=== PATIENT | female | born 1985 | race Caucasian/White ===

== ENCOUNTER 2020-12-26 17:01 | Emergency (ER) | payer OTHER, MEDICAID ==
[~2020-12-26] VITALS: Ht 180.3 cm; Wt 63.5 kg
--- NOTE | 2020-12-26 17:03 | NUR ---
BIBA BLS TO ER BED 5
[2020-12-26 17:09] VITALS: BP 107/68
--- NOTE | 2020-12-26 17:18 | NUR ---
35YO F BIBA PRESENTING WITH ALOC X 1 HR. PT WAS FOUND IN [employer] SIT[place] ON [place] WITH HER BOYFRIEND. 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 [facility] REPORTS SLURRING OF SPEECH. PT ADMITS TO TAKING 2 PILLS OF XANAX. BS- 107. PT IS A POOR HISTORIAN AND UNABLE TO PROVIDE A DETAILED MEDICAL HX. PMH: HLD, ANEMIA, MD. (COULD BE INACCURATE, SEE ABOVE) MEDS: VICODINE, XANAX ALLERGY: PENICILLIN
--- NOTE | 2020-12-26 18:03 | NUR ---
RADHA GARRISON AT BEDSIDE FOR EKG
[2020-12-26 18:05] LABS: BASOPHILS # (AUTO) 0.1 K/uL (0.00-0.22); BASOPHILS % (AUTO) 1.2 % (0.0-2.0); EOSINOPHILS # (AUTO) 0.1 K/uL (0-0.4); EOSINOPHILS % (AUTO) 2.9 % (0.0-4.0); HEMATOCRIT 41.7 % (36-48); HEMOGLOBIN 14.5 g/dL (12.0-16.0); LYMPHOCYTES # (AUTO) 1.7 K/uL (2.5-16.5); LYMPHOCYTES % (AUTO) 35.2 % (20.5-51.1); MEAN CORPUSCULAR HEMOGLOBIN 34 pg (27-31); MEAN CORPUSCULAR HGB CONC 35 g/dL (33-37); MONOCYTES # (AUTO) 0.3 K/uL (0.8-1.0); MONOCYTES % (AUTO) 6.4 % (1.7-9.3); NEUTROPHILS # (AUTO) 2.6 K/uL (1.8-7.7); NEUTROPHILS % (AUTO) 54.3 % (42.2-75.2); PLATELET COUNT (AUTO) 254 K/uL (140-450); RED BLOOD CELL COUNT(AUTO) 4.25 MIL/uL (4.20-5.40); RED CELL DISTRIBUTION WIDTH 12.4 % (11.6-13.7); WHITE BLOOD COUNT (AUTO) 4.8 K/uL (4.8-10.8)
[2020-12-26 18:26] LABS: ALBUMIN 4.3 g/dL (3.4-5.0); ANION GAP 13.5 (8-16); ASPARTATE AMINOTRANSFERASE 22 U/L (15-37); CARBON DIOXIDE 28.7 mmol/L (21-32); CHLORIDE 103 mmol/L (98-107); CREATININE 0.8 mg/dL (0.6-1.3); GFR ARICAN-AMERICAN 106 mL/min (>90); GLUCOSE 93 mg/dL (74-106); POTASSIUM 3.2 mmol/L (3.5-5.1); SALICYLATE 3.8 mg/dL (2.8-20.0); SODIUM SERUM 142 mmol/L (136-145); TOTAL BILIRUBIN 0.3 mg/dL (0.0-1.0); UREA NITROGEN, BLOOD 9 mg/dL (7-18)
[2020-12-26 18:29] LABS: ACETAMINOPHEN 98.3 ug/ml (10-30)
--- NOTE | 2020-12-26 18:36 | NUR ---
Pt is unable to void at this time, will try again later.
--- NOTE | 2020-12-26 19:10 | NUR ---
Pt report given to NICK CORNEJO. Transfer of care at this time.
[2020-12-26] MEDS ORDERED: SODIUM PHOS / POTASSIUM PHOS 1 PKT PDR PO SCH (21:00)
== END 2020-12-26 21:48 | disposition home or self-care (01) ==
LOC: MED 17:01
DX: T39.1X1A Poisoning by 4-Aminophenol derivatives, accidental (unintentional), initial encounter (principal); T42.4X1A Poisoning by benzodiazepines, accidental (unintentional), initial encounter; R94.31 Abnormal electrocardiogram [ECG] [EKG]; E87.6 Hypokalemia; E78.5 Hyperlipidemia, unspecified; Z88.0 Allergy status to penicillin; Y92.481 Parking lot as the place of occurrence of the external cause
CPT/HCPCS: 36415; 80053; 84703; 85025; 93005; 99284; G0480; G0482